=== PATIENT | male | born 1995 | race Caucasian/White ===

== ENCOUNTER 2016-04-10 00:49 | Emergency (ER) | payer BC ==
--- NOTE | 2016-04-10 01:22 | ED ---
Sharlene Ingram Michael, scribed for Jasvir Kaiser MD on 04/10/16 at 0108 . Substance Abuse/Use - HPI Summary HPI Summary: 20 y/o male was BIBA to the ED presenting with alcohol abuse. The pt is awake and started vomiting after arrival to the ED. He is an [employer] student. HPI was limited due to level 5 caveat - History Of Current Complaint Stated Complaint: 220 Hx Obtained From: EMS, Medical Records Hx From Patient Unobtainable Due To: Altered Mental Status Overdose Characteristics: Oral Timing Of Abuse: Binge Use Severity Initially: Moderate Severity Currently: Moderate Associated Signs And Symptoms: Nausea, Vomiting, Other: - AMS - Allergies/Home Medications Allergies/Adverse Reactions: Allergies Allergy/AdvReac Type Severity Reaction Status Date / Time No Known Allergies Allergy Verified 12/21/15 09:31 PMH/Surg Hx/FS Hx/Imm Hx Endocrine/Hematology History: Denies: Hx Diabetes Cardiovascular History: Denies: Hx Hypertension, Hx Pacemaker/ICD History: Denies: Hx Renal Disease Sensory History: Denies: Hx Hearing Aid Psychiatric History: Denies: Hx Panic Disorder - Social History Occupation: Student Review of Systems Positive: Vomiting, Nausea Neurological: Other - AMS All Other Systems Reviewed And Are Negative: No Physical Exam Triage Information Reviewed: Yes Vital Signs On Initial Exam: Initial Vitals Temp Pulse Resp BP Pulse Ox 95.3 F 59 18 116/81 100 04/10/16 01:05 04/10/16 01:05 04/10/16 01:05 04/10/16 01:05 04/10/16 01:05 Vital Signs Reviewed: Yes Appearance: Positive: Well-Appearing, No Pain Distress - aob Skin: Positive: Warm Eyes: Positive: BRINA ENT: Positive: Hearing grossly normal Neck: Positive: Supple Respiratory/Lung Sounds: Positive: Breath Sounds Present Cardiovascular: Positive: RRR Abdomen Description: Positive: Nontender, Soft Musculoskeletal: Positive: Strength/ROM Intact Neurological: Positive: Alert, Oriented to Person Place, Time Diagnostics - Vital Signs Vital Signs Temp Pulse Resp BP Pulse Ox 04/10/16 01:05 95.3 F 59 18 116/81 100 - Laboratory Lab Statement: Any lab studies that have been ordered have been reviewed, and results considered in the medical decision making process. Course/Dx - Course Course Of Treatment: pt has a serum alcohol of 272 - Diagnoses Provider Diagnoses: Alcohol intoxication Discharge - Discharge Plan Condition: Improved Disposition: HOME Patient Education Materials: Alcohol Intoxication (GEN) [facility] [Primary Care Provider] - The documentation as recorded by the Sharlene marino Michael accurately reflects the service I personally performed and the decisions made by me, Jasvir Kaiser MD.
[2016-04-10 08:26] VITALS: BP 113/45
--- NOTE | 2016-05-14 12:16 | ED ---
Gerald Ingram Claudia, scribed for Laurence Harry MD on 04/10/16 at 0727 . Progress - Progress Note Progress Note: Sign out from Jasvir Kaiser MD received at 0700. Pt is ambulating, tolerating PO intake and has a safe ride home. Pt is agreeable with the plan to be discharged home. Course/Dx - Course Course Of Treatment: pt has a serum alcohol of 272 - Diagnoses Provider Diagnoses: Alcohol intoxication The documentation as recorded by the Gerald marino Claudia accurately reflects the service I personally performed and the decisions made by Piero mary Laura, MD.
== END 2016-04-10 08:23 | disposition home or self-care (01) ==
LOC: ED 00:49
DX: F10.129 Alcohol abuse with intoxication, unspecified (principal); R11.2 Nausea with vomiting, unspecified; R41.82 Altered mental status, unspecified
CPT/HCPCS: 36415; 80320; 99283; G0480